=== PATIENT | male | born 1935 | race Caucasian/White ===

== ENCOUNTER 2024-06-28 09:16 | Emergency (ER) | payer MEDICARE ==
[2024-06-28 09:51] LABS: Bilirubin Negative (Negative); Blood, Urine Large (Negative); Glucose, Urine (Dipstick) Negative (Negative); Ketone, Urine Negative (Negative); Leukocyte Trace (Negative); Nitrite Negative (Negative); Protein, Urine (Dipstick) Trace mg/dL (Neg-Trace); Urobilinogen 0.2 mg/dL (Less than 2); pH, Urine 5.5 (5.0-9.0)
[2024-06-28 10:05] LABS: Bacteria/HPF Rare-Few HPF (None Seen); CAUTI Indications for Culture Dysuria,urgency,freq; Clarity Hazy (Clear); RBC/HPF 21-50 HPF (0-3); Squamous Epithelial 0-3 HPF (0-3)
[2024-06-28 10:06] LABS: Specific Gravity, Urine 1.023 (1.002-1.036)
[2024-06-28 10:08] LABS: Urine Culture Reflex Yes Yes
== END 2024-06-28 10:18 | disposition home or self-care (01) ==
LOC: NAV ERS 09:16
DX: R33.9 Retention of urine, unspecified (principal); I10 Essential (primary) hypertension; E78.00 Pure hypercholesterolemia, unspecified; Z55.6 Problems related to health literacy; Z87.891 Personal history of nicotine dependence; Z79.899 Other long term (current) drug therapy
CPT/HCPCS: 51701; 81001; 87086; 99283